=== PATIENT | female | born 1995 | race Asian ===

== ENCOUNTER 2020-10-29 17:06 | Emergency (ER) | payer OTHER ==
[2020-10-29] MEDS ORDERED: Ketorolac Tromethamine 30 MG/ML VIAL ONE (17:42)
== END 2020-10-29 18:30 | disposition home or self-care (01) ==
LOC: CSHERS 17:06
DX: S93.402A Sprain of unspecified ligament of left ankle, initial encounter (principal); X58.XXXA Exposure to other specified factors, initial encounter
CPT/HCPCS: 96372; J1885